=== PATIENT | male | born 1945 | race Caucasian/White ===

== ENCOUNTER 2016-06-30 07:37 | Day surgery (SDC) | payer OTHER ==
[2016-06-22 12:30] VITALS: BMI 23.0
[2016-06-30] MEDS ORDERED: LIDOCAINE 1% P/F 10 MG/ML VIAL ONE (07:52)
[2016-06-30] MEDS ORDERED: BSS (NA/CA/MG/K) BALANCED SALT SOLUTION OPHTH SOLN 15 ML BOTTLE ONE (07:52)
[2016-06-30] MEDS ORDERED: CARBACHOL 0.01% INTRA-OCULAR 1.5 ML VIAL ONE (07:52)
[2016-06-30] MEDS: CIPROFLOXACIN 0.3% EYE DROPS 5 ML BOTTLE ONE ×3 (08:05→08:15)
[2016-06-30] MEDS: TROPICAMIDE 1% OPHTH SOLN 15 ML BOTTLE ONE ×3 (08:05→08:15)
[2016-06-30] MEDS: CYCLOPENTOLATE 2% OPHTH SOLN 2 ML BOTTLE ONE ×3 (08:05→08:15)
[2016-06-30] MEDS: PHENYLEPHRINE 2.5% OPHTH SOLN 15 ML BOTTLE ONE ×3 (08:05→08:15)
[2016-06-30] MEDS ORDERED: MIDAZOLAM HCL 2 MG/2 ML SINGLE DOSE VIAL ONE (09:06)
[2016-06-30 10:09] VITALS: TEMP 98.3
[2016-06-30 10:47] VITALS: BP 132/81; PULSE 76
--- NOTE | 2016-06-30 19:58 | OP ---
DATE OF PROCEDURE: 06/30/2016 OPERATIVE PROCEDURE: Lens Phacoemulsification with Posterior Chamber Intraocular Lens Placement, Right Eye PREOPERATIVE DIAGNOSIS: Visually Significant Cataract of Right Eye POSTOPERATIVE DIAGNOSIS: Visually Significant Cataract of Right Eye SURGEON: Gian Walker M.D. ANESTHESIA: MAC PROCEDURE: The patient was brought to the operating room and placed under monitored anesthesia care by Anesthesia. A drop of Tetracaine was then placed over the right eye. The patient was then prepped and draped in the usual sterile manner. A speculum was then placed over the right eye. The eye was then well irrigated with copious amounts of BSS (balanced salt solution). The operating microscope was then moved into position. A paracentesis was performed using a 15 degree blade. At this point 0.5 mL of 1% preservative free-lidocaine was injected into the anterior chamber. Amvisc plus was then injected into the anterior chamber. A clear corneal incision was then formed using a 2.2 mm keratome. A capsulorrhexis was then performed in a continuous circular fashion beginning with a cystotome completed with an Utratas forceps. Hydrodissection was then performed using BSS on a cannula. The phaco probe was then introduced through the corneal wound and the cataract was removed using the phaco chop technique. Approximately 3 seconds of absolute phaco time was used. The remaining cortex was then removed using irrigation and aspiration with an I/A probe. The capsule was then filled with regular Amvisc and the capsule was noted to be intact. A previously selected foldable posterior chamber intraocular lens was then injected into the capsule through the corneal wound using a lens injector. It was then dialed into position using a Sinskey hook. The Amvisc was then removed using irrigation and aspiration. Miostat was then injected through the paracentesis to constrict the pupil. The paracentesis and corneal wound were then hydrated and noted to be water tight. A drop of Maxitrol was then placed over the eye. The speculum was removed and clear shield was taped over the eye. The patient tolerated the procedure well and there were no surgical complications. The patient was asked to follow up in my office the next day. GIAN WALKER M.D. 1 [id number]
== END 2016-06-30 10:25 | disposition home or self-care (01) ==
LOC: FASU 07:37
PROVIDERS: ATTEND Ophthalmology
PROC: 08RJ3JZ Replacement of Right Lens with Synthetic Substitute, Percutaneous Approach (ICD-10-PCS; principal; 2016-06-30 09:34)
DX: H26.8 Other specified cataract (principal)

== ENCOUNTER 2018-10-17 14:03 | Inpatient (IN) | payer OTHER ==
--- NOTE | 2018-10-17 14:11 | PDOC ---
History of Present Illness - General Chief Complaint: Abnormal Lab Results (Outside) Stated Complaint: ABNORMAL LAB RESULTS Time Seen by Provider: 10/17/18 14:06 History Source: Patient Exam Limitations: No Limitations - History of Present Illness Initial Comments: 10/17/18 14:07 73 yo male h/o hemorrhoids here c/o decreased urination and straining. pt states he has had over one week of difficulty urination. states he feels urge to go, straines and has very little urine output. also c/o lower abd discomfort fullness. no flank pain. no f/c does have dripping during night. no n/v. saw urgent care 6 days ago who did a urine dip was negative. then saw pcp yesterday who [facility]. was called today for increased BUN/ CR elevation unsure of how high. also c/o rect bleedig with stooling. Past History - Past Medical History Allergies/Adverse Reactions: Allergies Allergy/AdvReac Type Severity Reaction Status Date / Time poison florencia extract Allergy Severe Rash Verified 10/17/18 15:12 shellfish derived Allergy Severe Vomiting Verified 10/17/18 15:12 No Known Drug Allergies Allergy Verified 10/17/18 15:12 Home Medications: Ambulatory Orders Tamsulosin HCl [Flomax] 0.4 mg PO BID 10/17/18 Anemia: No Asthma: No Cancer: Yes (SKIN CA EYELID) Cardiac Disorders: No CVA: No COPD: No CHF: No Dementia: No Diabetes: No GI Disorders: No Disorders: No HTN: No Hypercholesterolemia: No Liver Disease: No Seizures: No Thyroid Disease: No - Surgical History Abdominal Surgery: No Appendectomy: No Cardiac Surgery: No Cholecystectomy: No Lung Surgery: No Neurologic Surgery: No Orthopedic Surgery: No - Suicide/Smoking/Psychosocial Hx Smoking History: Never smoked Have you smoked in the past 12 months: No Hx Alcohol Use: Yes (2 GLASSES WINE WEEK) Drug/Substance Use Hx: No Substance Use Type: Alcohol Hx Substance Use Treatment: No Review of Systems - Review of Systems Constitutional: No: Chills, Diaphoresis HEENTM: No: Eye Pain Respiratory: No: Cough, Orthopnea Cardiac (ROS): No: Chest Pain, Edema ABD/GI: No: Abdominal Distended, Nausea, Vomiting : Yes: Other (difficulty urinating) Musculoskeletal: No: Back Pain, Gout, Joint Pain Integumentary: No: Bruising, Change in Color Neurological: No: Headache All Other Systems: Reviewed and Negative *Physical Exam - Physical Exam Comments: 10/17/18 14:09 awake alert lungs clear bilaterally heart rrrl no mrg abd soft mild suprapubic ttp. no rebound no guarding. mild bladder fullness. no cva tenderness. skin warm and dry. alert oriented x 3. Heart Score/ECG Review #1 General ECG Interpretation: Sinus Rhythm, Normal Rate (80), Normal Intervals, No acute ischemic changes ED Treatment Course - LABORATORY CBC & Chemistry Diagram: 10/17/18 14:25 10/17/18 14:25 Medical Decision Making - Medical Decision Making 10/17/18 14:10 73 yo M with h/o hemorrhiods, here with difficulty urination, increased bun / creatinine. differential renal failure, dehydration , posobstructive renal failure vs. intrinsic. rectal bleed. uti, plan labs ua . post void bladder volume. 10/17/18 15:58 pt with renal failure cr. 8.36. likely post obstructive. bladder post void 800 ml. mild hydronephrosis. plan chin cathetar. will admit. ekg unrmarkable. other electrolyte normal. d/w dr Narvaez who states he will admit to [facility]. will consult nephrology and urolgy. 10/17/18 16:31 d/w dr Watson, nephrology. recommend hydration with 1/2 normal saline at 100/ hr in case of post obstructive diuresis. d/w urology Dr carolina, will see pt. 10/17/18 17:[address] requesting ct a/p r/o other intrabdominal process causing hydronephrosis, renal failure. *DC/Admit/Observation/Transfer Diagnosis at time of Disposition: Renal failure, Urinary retention - Discharge Dispostion Decision to Admit order: Yes - Referrals - Patient Instructions - Post Discharge Activity
[2018-10-17 14:47] LABS: BASO % 0.2 % (0-2.0); EOS % 0.5 % (0-4.5); HEMATOCRIT 45.9 % (35.4-49); HEMOGLOBIN 15.4 GM/dl (11.7-16.9); LYMPH % 11.5 % (8-40); MCH 30.9 pg (25.7-33.7); MCHC 33.5 g/dl (32.0-35.9); MEAN CELL VOLUME 92.3 fl (80-96); MONO % 12.6 % (3.8-10.2); NEUT % 75.2 % (42.8-82.8); PLATELET COUNT 174 K/MM3 (134-434); RBC 4.97 M/mm3 (4.00-5.60); RDW 13.2 % (11.9-15.9); WHITE BLOOD COUNT 6.3 K/mm3 (4.0-10.8)
[2018-10-17 14:55] LABS: ALBUMIN 3.6 g/dl (3.4-5.0); BILIRUBIN,TOTAL 0.6 mg/dl (0.2-1); CALCIUM 8.4 mg/dl (8.5-10); POTASSIUM 4.1 mmol/L (3.5-5.1); TOT PROT 6.6 g/dl (6.4-8.2)
[2018-10-17 15:16] LABS: CREATININE 8.6 mg/dl (0.55-1.3)
[2018-10-17 15:51] LABS: EPITHELIAL CELLS FEW /hpf
[2018-10-17] MEDS ORDERED: SODIUM CHLORIDE 0.9% 1000 ML INFUS.BAG IV ONE (16:31)
[2018-10-17] MEDS ORDERED: ACETAMINOPHEN 325 MG TABLET (FP) PO PRN (18:11)
[2018-10-17] MEDS ORDERED: SODIUM CHLORIDE 0.45% 1,000 ML IV SCH (18:15)
[2018-10-17 22:57] VITALS: BMI 46.7
[2018-10-17 23:19] LABS: CALCIUM 8.8 mg/dl (8.5-10); CREATININE 3.6 mg/dl (0.55-1.3); POTASSIUM 3.7 mmol/L (3.5-5.1)
[2018-10-18] MEDS: DOCUSATE SODIUM 100 MG CAPSULE (FP) PO SCH ×2 (00:46→21:55)
[2018-10-18] MEDS: TAMSULOSIN HCL 0.4 MG CAP PO SCH ×2 (00:46→20:20)
--- NOTE | 2018-10-18 09:28 | EKG ---
Test Reason : Blood Pressure : / mmHG Vent. Rate : 080 BPM Atrial Rate : 080 BPM P-R Int : 242 ms QRS Dur : 082 ms QT Int : 370 ms P-R-T Axes : 072 -08 020 degrees QTc Int : 426 ms SINUS RHYTHM WITH 1ST DEGREE A-V BLOCK SEPTAL INFARCT , AGE UNDETERMINED ABNORMAL ECG NO PREVIOUS ECGS AVAILABLE Confirmed by FELI KLEIN MD ([id number]) on 10/18/2018 9:28:27 AM Referred By: DR EMMANUEL Confirmed By:FELI KLEIN MD
[2018-10-18 11:23] LABS: CALCIUM 8.7 mg/dl (8.5-10); CREATININE 1.5 mg/dl (0.55-1.3); POTASSIUM 3.8 mmol/L (3.5-5.1)
--- NOTE | 2018-10-18 11:26 | CONSULT ---
Consult - text type - Consultation Consultation Note: Renal Consult for SWATHI This is a 73 year old gentleman with no significant past medical history who presented with abd pain and urinary retention and found to have SWATHI with bladder distension and bilateral hydronephrosis. Pt reports 4-5 period of difficulty urinating. No prior hx of prostate problems. Does have hemorrhoids. Was taking ibuprofen around the clock for pain. No chest pain, sob, N/V/D, fever , chills, leg swelling. Did have some dysuria with urination. PMHx: as above Allergies: NKDA Family Hx: Mother on dialysis (at age 99) Social Hx: No T/A/D ROS: as per HPI, all other pertinent ros negative Home Medications Medication Instructions Recorded Tamsulosin HCl [Flomax] 0.4 mg PO BID 10/17/18 Vital Signs Temperature 98.5 F 10/18/18 06:55 Pulse Rate 84 10/18/18 09:21 Respiratory Rate 18 10/18/18 09:21 Blood Pressure 143/73 10/18/18 09:21 O2 Sat by Pulse Oximetry (%) 100 10/18/18 09:21 Intake & Output 10/15/18 10/16/18 10/17/18 10/18/18 23:59 23:59 23:59 23:59 Intake Total 1000 Output Total 3800 1400 Balance -2800 -1400 Weight 156.6 kg NAD awake and alert neck supple, no JVD RRR, no M/R CTA, no rales or wheeze soft NT/ND No LE edema, clubbing or cyanosis Chin in place CBC, BMP 10/17/18 14:25 Current Medications Acetaminophen (Tylenol -) 650 mg PO Q6H PRN PRN Reason: PAIN Docusate Sodium (Colace -) 300 mg PO HS [facility] Last Admin: 10/18/18 00:46 Dose: 300 mg Finasteride (Proscar -) 5 mg PO DAILY [facility] Tamsulosin HCl (Flomax -) 0.4 mg PO DAILY@1999 [facility] Last Admin: 10/18/18 00:46 Dose: 0.4 mg 73 year old gentleman with no significant past medical history who presented with abd pain and urinary retention and found to have SWATHI with bladder distension and bilateral hydronephrosis. #SWATHI secondary ot bladder outlet obstruction + NSAID use #BPH with urinary retention #Metabolic acidosis #Hypertension in hospital #Metabolic acidosis Renal function improving with Chin and IVF todays am labs pending continue 1/2 NS at 100cc per hour for 24 hours continue flomax, will add proscar as well Urology consult for chin management Trend serum bicarb, expect to improve with improvement in renal function can monitor BP for now, should improve with renal function Thank you Doug Mcghee DO
[2018-10-18] MEDS: FINASTERIDE 5 MG TABLET (FP) PO SCH (11:50)
--- NOTE | 2018-10-18 17:39 | HP ---
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) Cardiovascular: No: AFIB, Aneurysm, Aortic Insufficiency, Aortic Stenosis, CAD, CHF, Deep Vein Thrombosis, HTN, Hyperlipdemia, IA, Mitral Insufficiency, Mitral Stenosis, Murmur, Pulmonary Hypertension, Other Pulmonary: No: Asthma, Bronchitis, Cancer, COPD, O2 Dependent, Pneumonia, Previously Intubated, Pulmonary Embolus, Pulmonary Fibrosis, Sleep Apnea, Other Gastrointestinal: No: Ascites, Cancer, Constipation, Crohn's Disease, Diverticulitis, Diverticulosis, Esophageal Varices, Gastritis, GERD, GI Bleed, Hemorrhoids, Hiatal Hernia, Inflamatory Bowel Disease, Irritable Bowel Disease, Pancreatitis, Peptic Ulcer Disease, Ulcerative Colitis, Other Hepatobiliary: No: Cirrhosis, Cholelithiasis, Cholecystitis, Choledocholithiasis , Hepatitis A, Hepatitis B, Hepatitis C, Other Renal/: No: Renal Failure, Renal Inusuff, BPH, Cancer, Hematuria, Hemodialysis , Neurogenic Bladder, Renal Calculi, UTI, Other Heme/Onc: No: Anemia, B12 Deficiency, Bleeding Disorder, Cancer, Current Chemotherapy, Current Radiation Therapy, Hemochromatosis, Hypercoaguable State, Myeloproliferative Synd, Sickle Cell Disease, Sickle Cell Trait, Thrombocytopenia, Other Infectious Disease: No: AIDS, C-Diff, Herpes Zoster, HIV, MRSA, STD's, Tuberculosis, VREF, Other Psych: No: Addictions, Anxiety, Bipolar, Depression, Panic, Psychosis, Schizophrenia, Other Musculoskeletal: No: Bursitis, Chronic low back pain, Hemiparesis, Hemiplegia, Osteoarthritis, Paraplegia, Other Rheumatology: No: Fibromyalgia, Gout, Lupus, Rheumatoid Arthritis, Sarcoidosis, Vasculitis, Other ENT: Yes: Allergic Rhinitis Endocrine: No: [place]'s Disease, [place]'s Disease, Diabetes Insipidus, Diabetes Mellitus, Hyperparathyroidism, Hyperthyroidism, Hypothyroidism, Osteopenia, SIADH, Other Dermatology: No: Basal Cell, Cellulitis, Eczema, Melanoma, Psoriasis, Squamous Cell, Other - Past Surgical History Past Surgical History: No: None, AAA Repair, AICD, Amputation, Appendectomy, Arthrosocopy, AV Fistula/Graft, Bariatric Surgery, Breast Biopsy, Bypass, CABG, Carotid Endarterectomy, Cataract Removal, Cholecystectomy, Colectomy, Colonoscopy, Colostomy, Craniotomy, , Cystectomy, Hernia Repair, Hysterectomy, Ileal Conduit, Ileosotomy, Joint Replacement, Kidney Transplant, Laminectomy, Liver Transplant, Mastectomy, Nephrectomy, Oopherectomy, Orchiectomy, Permanent Pacemaker, Prostatectomy, Splenectomy, Stent, Thoracotomy , TURP, Tonsillectomy, Tubal Ligation, Upper Endoscopy, Valve Replacement, Vasectomy, Vein Stripping/Ligation - Smoking History Smoking history: Former smoker Have you smoked in the past 12 months: No If you are a former smoker, when did you quit?: 1989 - Alcohol/Substance Use Hx Alcohol Use: Yes (2 GLASSES WINE WEEK) History of Substance Use: denies: None, Cocaine, Heroin, Marijuana, Prescription , Tranquilizers - Social History Usual Living Arrangement: Yes: Alone. No: With Spouse, With Parent, With Significant Other, With Child, Assisted Living, Half-Way, Other ADL: Independent History of Recent Travel: No Home Medications - Allergies Allergies/Adverse Reactions: Allergies Allergy/AdvReac Type Severity Reaction Status Date / Time poison florencia extract Allergy Severe Rash Verified 10/17/18 15:12 shellfish derived Allergy Severe Vomiting Verified 10/17/18 15:12 No Known Drug Allergies Allergy Intermediate Verified 10/18/18 17:52 - Home Medications Home Medications: Ambulatory Orders Tamsulosin HCl [Flomax] 0.4 mg PO BID 10/17/18 Family Disease History - Family Disease History Family Disease History: Diabetes: Mother (crf on dialysis) Review of Systems - Review of Systems Constitutional: denies: No Symptoms, Chills, Diaphoresis, Fever, Lethargy, Loss of Appetite, Malaise, Night Sweats, Unintentional Wgt. Loss, Weakness, Other Eyes: denies: No Symptoms, Blind Spots, Blurred Vision, Double Vision, Eye Pain , Floaters, Photophobia, Recent Change in Vision, Other HENT: denies: No Symptoms, Difficult Swallowing, Ear Discharge, Ear Pain, Epistaxis, Gingival Bleeding, Hearing Loss, Mouth Swelling, Nasal Congestion, Ocular Prosthesis, Throat Pain, Toothache, Ringing in Ears, Other Neck: denies: No Symptoms, Decreased ROM, Lumps, Pain on Movement, Stiffness, Swollen Glands, Tenderness, Other Cardiovascular: denies: No Symptoms, Chest Pain, Edema, Palpitations, Shortness of Breath, Other Respiratory: denies: No Symptoms, Cough, Exercise Intolerance, Hemoptysis, Orthopnea, PND, Snoring, SOB, SOB on Exertion, Wheezing, Other Gastrointestinal: denies: No Symptoms, Abdominal Pain, Bloating, Constipation, Diarrhea, Dysphagia, Indigestion, Melena, Nausea, Rectal Bleeding, Vomiting, Vomiting Blood, Other Genitourinary: reports: Burning, Dysuria, Frequency, Urgency. denies: No Symptoms, Discharge, Flank Pain, Hematuria, Incontinence, Lesions, Menses, Pain , Testicular Mass, Testicular Pain, Testicular Swelling, Vaginal Bleeding, Other Breasts: denies: No Symptoms Reported, See HPI, Breast Implants, Discharge from Nipple, Lumps, Pain, Skin Changes, Other Musculoskeletal: denies: No Symptoms, Back Pain, Crepitus, Decreased ROM, Extremity Pain, Joint Pain, Joint Swelling, Muscle Pain, Muscle Cramps, Muscle Weakness, Other Integumentary: denies: No Symptoms, Blister, Bruising, Change in Color, Eczema, Erythema, Incision, Lesions, Lump, Pallor, Pruritis, Rash, Wound, Other Neurological: denies: No Symptoms, Change in LOC, Change in Speech, Confusion, Dizziness, Headache, Incoordination, Numbness, Parasthesia, Pre-Existing Deficit , Seizure, Syncope, Tremors, Unsteady Gait, Weakness, Other Endocrine: denies: No Symptoms, Excessive Sweating, Flushing, Increased Hunger, Increased Thirst, Intolerance to Cold, Intolerance to Heat, Unexplained Weight Gain, Unexplained Weight Loss, Other Psychiatric: denies: No Symptoms, Altered Sleep Pattern, Anxiety, Depression, Hallucinations, Panic, Paranoia, Suicidal, Other Physical Examination Vital Signs: Vital Signs Temperature 98.3 F 10/18/18 14:41 Pulse Rate 68 10/18/18 14:41 Respiratory Rate 18 10/18/18 14:41 Blood Pressure 131/73 10/18/18 14:41 O2 Sat by Pulse Oximetry (%) 96 10/18/18 14:41 Constitutional: Yes: Well Nourished, No Distress, Calm. No: Anxious, Ashen, Cachectic, Diaphoresis, Mild Distress, Moderate Distress, Severe Distress, Obese , Pallor, Poor Hygeine, Thin, Other Eyes: Yes: WNL, Conjunctiva Clear, EOM Intact, PERRL. No: Cataracts, Diplopia, Occular Prosthesis, Ptosis, Sclera Icterus, Tearing, Other HENT: Yes: WNL, Atraumatic, Normocephalic. No: Drooling, Epistaxis, Hoarseness , Nasal Congestion, Pharyngeal Erythema, Rhinnorhea, Thrush, Tonsillar Exudate, Other Neck: Yes: WNL, Supple. No: Trachea Midline, Decreased ROM, Lymphadenopathy, Rigid, Tenderness, Thyromegaly, Other Cardiovascular: Yes: WNL, Regular Rate and Rhythm. No: Bradycardia, Tachycardia , Pulse Irregular, Bruit, JVD, Gallop, Murmur, Rub, S1, S2, S3, S4, Varicosities , Other Respiratory: Yes: WNL, Regular. No: CTA Bilaterally, Accessory Muscle Use, Bradypnea, Colin-Singh, Cough, Diminished, Dullness, Hyperresonant, Intubated , [place], Mechanically Ventilated, On BiPap, On Nasal O2, On Venti-Mask, Orthopnea, Poor Air Entry, Rales, Rhonchi, SOB, SOB on Exertion, Stridor, Tachypnea, Wheezes, Other Gastrointestinal: Yes: WNL, Normal Bowel Sounds, Soft. No: Abdomen, Obese, Ascites, Distention, Hematemesis, Hemorrhoids, Hepatomegaly, Hernia, Hyperactive Bowel Sounds, Hypoactive Bowel Sounds, Melena, Palpable Mass, Pulsatile Mass, Rectal Bleeding, Splenomegaly, Tenderness, Tenderness, Epigastrium, Tenderness, Rebound, Vomiting, Other ...Rectal Exam: Yes: Guaiac Positive, Hemorrhoids/External, Other (large prostate). No: WNL, Deferred, Erythema, Guaiac Negative, Guaiac Trace, Hemorrhoids/Internal, Induration, Inflammation, Mass, Sphincter Tone Normal, Sphincter Tone Poor Renal/: Yes: WNL, Anuria Musculoskeletal: Yes: WNL Extremities: Yes: WNL Edema: No Integumentary: Yes: WNL Neurological: Yes: WNL, Alert, Oriented ...Motor Strength: WNL Psychiatric: Yes: WNL Labs: CBC, BMP 10/17/18 14:25 10/18/18 07:00 Imaging - Results Cat Scan: Pending Problem List - Problems (1) Urinary retention Assessment/Plan: large /prostate with obstruction;external hemorrhoids;hemoult pos.stoolplan ct of abdomen;urology consult with [urology];iv fluids;serial chem-7; consult with nephrology;awaiting psa;this patient is optimized for spinal or epidural anesthesia for prostatectomy Code(s): R33.9 - RETENTION OF URINE, UNSPECIFIED
--- NOTE | 2018-10-18 18:04 | CON.GU ---
Consult Consult Specialty:: Referred by:: Solange Reason for Consultation:: urinary retention - History of Present Illness Chief Complaint: difficulty voiding History of Present Illness: 73 yo male h/o hemorrhoids here c/o decreased urination and straining. pt states he has had over one week of difficulty urination. states he feels urge to go, strains and has very little urine output. also c/o lower abd discomfort fullness. no flank pain. no f/c does have dripping during night. no n/v. saw urgent care 6 days ago who did a urine dip was negative. then saw pcp yesterday who [facility]. was called today for increased BUN/ CR elevation unsure of how high. also c/o rectal bleeding with BMs. 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) Cardio/Vascular: No: AFIB, Aneurysm, Aortic Insufficiency, Aortic Stenosis, CAD , CHF, Deep Vein Thrombosis, HTN, Hyperlipdemia, [place], Mitral Insufficiency, Mitral Stenosis, Murmur, Pulmonary Hypertension, Other Pulmonary: No: Asthma, Bronchitis, Cancer, COPD, O2 Dependent, Pneumonia, Previously Intubated, Pulmonary Embolus, Pulmonary Fibrosis, Sleep Apnea, Other Gastrointestinal: No: Ascites, Cancer, Constipation, Crohn's Disease, Diverticulitis, Diverticulosis, Esophageal Varices, Gastritis, GERD, GI Bleed, Hemorrhoids, Hiatal Hernia, Inflamatory Bowel Disease, Irritable Bowel Disease, Pancreatitis, Peptic Ulcer Disease, Ulcerative Colitis, Other Hepatobiliary: No: Cirrhosis, Cholelithiasis, Cholecystitis, Choledocholithiasis , Hepatitis A, Hepatitis B, Hepatitis C, Other Renal/: Yes: BPH. No: Renal Failure, Renal Inusuff, Cancer, Hematuria, Hemodialysis, Neurogenic Bladder, Renal Calculi, UTI, Other Infectious Disease: No: AIDS, C-Diff, Herpes Zoster, HIV, MRSA, STD's, Tuberculosis, VREF, Other Psych: No: Addictions, Anxiety, Bipolar, Depression, Panic, Psychosis, Schizophrenia, Other Musculoskeletal: No: Bursitis, Chronic low back pain, Hemiparesis, Hemiplegia, Osteoarthritis, Paraplegia, Other Rheumatology: No: Fibromyalgia, Gout, Lupus, Rheumatoid Arthritis, Sarcoidosis, Vasculitis, Other ENT: Yes: Allergic Rhinitis Endocrine: No: [place]'s Disease, [place]'s Disease, Diabetes Insipidus, Diabetes Mellitus, Hyperparathyroidism, Hyperthyroidism, Hypothyroidism, Osteopenia, SIADH, Other Dermatology: No: Basal Cell, Cellulitis, Eczema, Melanoma, Psoriasis, Squamous Cell, Other - Past Surgical History Past Surgical History: No: None, AAA Repair, AICD, Amputation, Appendectomy, Arthrosocopy, AV Fistula/Graft, Bariatric Surgery, Breast Biopsy, Bypass, CABG, Carotid Endarterectomy, Cataract Removal, Cholecystectomy, Colectomy, Colonoscopy, Colostomy, Craniotomy, , Cystectomy, Hernia Repair, Hysterectomy, Ileal Conduit, Ileosotomy, Joint Replacement, Kidney Transplant, Laminectomy, Liver Transplant, Mastectomy, Nephrectomy, Oopherectomy, Orchiectomy, Permanent Pacemaker, Prostatectomy, Splenectomy, Stent, Thoracotomy , TURP, Tonsillectomy, Tubal Ligation, Upper Endoscopy, Valve Replacement, Vasectomy, Vein Stripping/Ligation - Alcohol/Substance Use Hx Alcohol Use: Yes (2 GLASSES WINE WEEK) History of Substance Use: denies: None, Cocaine, Heroin, Marijuana, Prescription , Tranquilizers - Smoking History Smoking history: Former smoker Have you smoked in the past 12 months: No If you are a former smoker, when did you quit?: 1989 - Social History ADL: Independent History of Recent Travel: No Home Medications - Allergies Allergies/Adverse Reactions: Allergies Allergy/AdvReac Type Severity Reaction Status Date / Time poison florencia extract Allergy Severe Rash Verified 10/17/18 15:12 shellfish derived Allergy Severe Vomiting Verified 10/17/18 15:12 No Known Drug Allergies Allergy Intermediate Verified 10/18/18 17:52 - Home Medications Home Medications: Ambulatory Orders Tamsulosin HCl [Flomax] 0.4 mg PO BID 10/17/18 Physical Exam- Vital Signs: Vital Signs Temperature 98.3 F 10/18/18 14:41 Pulse Rate 68 10/18/18 14:41 Respiratory Rate 18 10/18/18 14:41 Blood Pressure 131/73 10/18/18 14:41 O2 Sat by Pulse Oximetry (%) 96 10/18/18 14:41 Gastrointestinal: Yes: WNL Renal/: Yes: WNL, Briceño Present. No: Bladder Distention Testicles: Yes: WNL, Descended Scrotum: Yes: WNL Penis: Yes: WNL Prostate Exam: Yes: Swollen (2+) Labs: CBC, BMP 10/17/18 14:25 10/18/18 07:00 Imaging - Results Cat Scan: Report Reviewed, Image Reviewed Ultrasound: Report Reviewed
--- NOTE | 2018-10-18 18:27 | CON.GU ---
Consult Consult Specialty:: Referred by:: Solange Reason for Consultation:: urinary retention - History of Present Illness Chief Complaint: difficulty voiding History of Present Illness: 73 year old gentleman with no significant past medical history who presented with abd pain and urinary retention and found to have BPH, SWATHI with bladder distension and bilateral hydronephrosis. Pt reports 4-5 period of difficulty urinating. No prior hx of prostate problems. Does have hemorrhoids. Was taking ibuprofen around the clock for pain. No chest pain, sob, N/V/D, fever , chills, leg swelling. Did have some dysuria with urination. PMHx: as above Allergies: NKDA Family Hx: Mother on dialysis (at age 99) Social Hx: No T/A/D ROS: as per HPI, all other pertinent ros negative cons req. 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 (several bouts of lyme disease) Cardio/Vascular: No: AFIB, Aneurysm, Aortic Insufficiency, Aortic Stenosis, CAD , CHF, Deep Vein Thrombosis, HTN, Hyperlipdemia, [place], Mitral Insufficiency, Mitral Stenosis, Murmur, Pulmonary Hypertension, Other Pulmonary: No: Asthma, Bronchitis, Cancer, COPD, O2 Dependent, Pneumonia, Previously Intubated, Pulmonary Embolus, Pulmonary Fibrosis, Sleep Apnea, Other Gastrointestinal: No: Ascites, Cancer, Constipation, Crohn's Disease, Diverticulitis, Diverticulosis, Esophageal Varices, Gastritis, GERD, GI Bleed, Hemorrhoids, Hiatal Hernia, Inflamatory Bowel Disease, Irritable Bowel Disease, Pancreatitis, Peptic Ulcer Disease, Ulcerative Colitis, Other Hepatobiliary: No: Cirrhosis, Cholelithiasis, Cholecystitis, Choledocholithiasis , Hepatitis A, Hepatitis B, Hepatitis C, Other Renal/: Yes: BPH. No: Renal Failure, Renal Inusuff, Cancer, Hematuria, Hemodialysis, Neurogenic Bladder, Renal Calculi, UTI, Other Infectious Disease: No: AIDS, C-Diff, Herpes Zoster, HIV, MRSA, STD's, Tuberculosis, VREF, Other Psych: No: Addictions, Anxiety, Bipolar, Depression, Panic, Psychosis, Schizophrenia, Other Musculoskeletal: No: Bursitis, Chronic low back pain, Hemiparesis, Hemiplegia, Osteoarthritis, Paraplegia, Other Rheumatology: No: Fibromyalgia, Gout, Lupus, Rheumatoid Arthritis, Sarcoidosis, Vasculitis, Other ENT: Yes: Allergic Rhinitis Endocrine: No: Anson's Disease, Vianey's Disease, Diabetes Insipidus, Diabetes Mellitus, Hyperparathyroidism, Hyperthyroidism, Hypothyroidism, Osteopenia, SIADH, Other Dermatology: No: Basal Cell, Cellulitis, Eczema, Melanoma, Psoriasis, Squamous Cell, Other - Past Surgical History Past Surgical History: No: None, AAA Repair, AICD, Amputation, Appendectomy, Arthrosocopy, AV Fistula/Graft, Bariatric Surgery, Breast Biopsy, Bypass, CABG, Carotid Endarterectomy, Cataract Removal, Cholecystectomy, Colectomy, Colonoscopy, Colostomy, Craniotomy, , Cystectomy, Hernia Repair, Hysterectomy, Ileal Conduit, Ileosotomy, Joint Replacement, Kidney Transplant, Laminectomy, Liver Transplant, Mastectomy, Nephrectomy, Oopherectomy, Orchiectomy, Permanent Pacemaker, Prostatectomy, Splenectomy, Stent, Thoracotomy , TURP, Tonsillectomy, Tubal Ligation, Upper Endoscopy, Valve Replacement, Vasectomy, Vein Stripping/Ligation - Alcohol/Substance Use Hx Alcohol Use: Yes (2 GLASSES WINE WEEK) History of Substance Use: denies: None, Cocaine, Heroin, Marijuana, Prescription , Tranquilizers - Smoking History Smoking history: Former smoker Have you smoked in the past 12 months: No If you are a former smoker, when did you quit?: 1989 - Social History ADL: Independent History of Recent Travel: No Home Medications - Allergies Allergies/Adverse Reactions: Allergies Allergy/AdvReac Type Severity Reaction Status Date / Time poison florencia extract Allergy Severe Rash Verified 10/17/18 15:12 shellfish derived Allergy Severe Vomiting Verified 10/17/18 15:12 No Known Drug Allergies Allergy Intermediate Verified 10/18/18 17:52 - Home Medications Home Medications: Ambulatory Orders Tamsulosin HCl [Flomax] 0.4 mg PO BID 10/17/18 Family Disease History - Family Disease History Family Disease History: Diabetes: Mother (crf on dialysis) Physical Exam- Vital Signs: Vital Signs Temperature 98.3 F 10/18/18 14:41 Pulse Rate 68 10/18/18 14:41 Respiratory Rate 18 10/18/18 14:41 Blood Pressure 131/73 10/18/18 14:41 O2 Sat by Pulse Oximetry (%) 96 10/18/18 14:41 Renal/: Yes: Chin Present. No: Bladder Distention Pelvis: Yes: WNL. No: Bladder Palpable, Bladder Distended Testicles: Yes: WNL Scrotum: Yes: WNL Penis: Yes: WNL Prostate Exam: Yes: Swollen Labs: CBC, BMP 10/17/18 14:25 10/18/18 07:00 Imaging - Results Cat Scan: Report Reviewed, Image Reviewed Ultrasound: Report Reviewed Problem List - Problems (1) BPH loc w urin obs/LUTS Assessment/Plan: cont chin, rx finasteride, TURP 10/[address] [facility] Code(s): N40.1 - BENIGN PROSTATIC HYPERPLASIA WITH LOWER URINARY TRACT SYMP (2) Renal failure Code(s): N19 - UNSPECIFIED KIDNEY FAILURE (3) Urinary retention Code(s): R33.9 - RETENTION OF URINE, UNSPECIFIED (4) Hydronephrosis Code(s): N13.30 - UNSPECIFIED HYDRONEPHROSIS (5) Elevated PSA Code(s): R97.20 - ELEVATED PROSTATE SPECIFIC ANTIGEN [PSA]
[2018-10-19 08:17] LABS: INR 1.2 (0.82-1.09); PROTHROMBIN TIME (PATIENT) 13.4 SEC (10.2-13.0)
[2018-10-19] MEDS: FINASTERIDE 5 MG TABLET (FP) PO SCH (09:53)
[2018-10-19 10:17] LABS: CALCIUM 8.6 mg/dl (8.5-10); CREATININE 0.7 mg/dl (0.55-1.3); POTASSIUM 3.8 mmol/L (3.5-5.1)
--- NOTE | 2018-10-19 16:28 | PN ---
Progress Note (short form) - Note Progress Note: Renal follow up for SWATHI Pt seen and examined at the bedside awake and alert no acute complaints voiding via catheter no cp, sob, abd pain, N/V/D off IVF Vital Signs Temperature 98.2 F 10/19/18 14:00 Pulse Rate 65 10/19/18 14:00 Respiratory Rate 18 10/19/18 14:00 Blood Pressure 162/77 10/19/18 14:00 O2 Sat by Pulse Oximetry (%) 98 10/19/18 14:00 Intake & Output 10/16/18 10/17/18 10/18/18 10/19/18 23:59 23:59 23:59 23:59 Intake Total 1000 2550 1500 Output Total 3800 2500 1300 Balance -2800 50 200 Weight 156.6 kg 71.033 kg NAD RRR, no M/R CTA, no rales or wheeze soft NT/ND No LE edema, clubbing or cyanosis Briceño in place CBC, BMP 10/17/18 14:25 10/19/18 07:10 73 year old gentleman with no significant past medical history who presented with abd pain and urinary retention and found to have SWATHI with bladder distension and bilateral hydronephrosis. #SWATHI secondary ot bladder outlet obstruction + NSAID use #BPH with urinary retention #Metabolic acidosis #Hypertension in hospital #Metabolic acidosis Renal function now improved to baseline can be off IVF encouraged oral hydration for TURP tomorrow continue flomax/proscar - length of treatment to be determined by urology will sign off case at this time please call with any questions or concerns. Thank you Doug Mcghee DO
[2018-10-19] MEDS: DOCUSATE SODIUM 100 MG CAPSULE (FP) PO SCH (21:35)
[2018-10-19] MEDS: TAMSULOSIN HCL 0.4 MG CAP PO SCH (21:35)
--- NOTE | 2018-10-20 12:42 | OP ---
Operative Note - Note: Operative Date: 10/20/18 Pre-Operative Diagnosis: BPH, urinary retention Operation: bipolar TURP Findings: BPH Post-Operative Diagnosis: Same as Pre-op Surgeon: Everett Jeffers Anesthesiologist/CHECKOUT OPERATOR: Serge Cooper Anesthesia: Spinal Specimens Removed: prostate tissue Estimated Blood Loss (mls): 0 Drains & Tubes with Location: [address] 30 ml chin Operative Report Dictated: Yes
[2018-10-20] MEDS ORDERED: PROPOFOL 20 ML ONE (13:39)
[2018-10-20] MEDS ORDERED: MIDAZOLAM HCL 2 MG/2 ML SINGLE DOSE VIAL ONE (13:39)
[2018-10-20] MEDS ORDERED: SODIUM CHLORIDE 0.9% P/F 10 ML VIAL IJ ONE (13:40)
[2018-10-20] MEDS ORDERED: ceFAZolin SODIUM 1 GM VIAL ONE (13:40)
[2018-10-20] MEDS ORDERED: ceFAZolin SODIUM 1 GM VIAL IVPB ONE (14:00)
[2018-10-20] MEDS ORDERED: ONDANSETRON 4 MG/2 ML VIAL IVPUSH PRN (15:15)
[2018-10-20] MEDS ORDERED: ACETAMINOPHEN 325 MG TABLET (FP) PO PRN (15:59)
[2018-10-20] MEDS ORDERED: CEFAZOLIN 1 GM in DEXTROSE 5%-WATER - 50 ML IVPB SCH (18:00)
[2018-10-20] MEDS: LACTATED RINGERS SOLUTION 1,000 ML IV SCH (18:51)
[2018-10-20] MEDS: FINASTERIDE 5 MG TABLET (FP) PO SCH (18:51)
[2018-10-20] MEDS: TAMSULOSIN HCL 0.4 MG CAP PO SCH (20:12)
[2018-10-20] MEDS: CEFAZOLIN 1 GM/D5W 1 GM/50 ML BAG IVPB SCH (21:38)
[2018-10-20] MEDS: DOCUSATE SODIUM 100 MG CAPSULE (FP) PO SCH (21:38)
[2018-10-21] MEDS: CEFAZOLIN 1 GM/D5W 1 GM/50 ML BAG IVPB SCH ×3 (01:31→18:00)
--- NOTE | 2018-10-21 07:45 | OP ---
DATE OF OPERATION: 10/20/2018 PREOPERATIVE DIAGNOSES: Benign prostatic hypertrophy, urinary retention. POSTOPERATIVE DIAGNOSES: Benign prostatic hypertrophy, urinary retention. PROCEDURE: Bipolar transurethral resection of the prostate. SURGEON: Everett Jeffers MD CANDY SEPARATOR ENROBING: None. ANESTHESIA: Spinal. ANESTHESIOLOGIST: Qasim Puentes CRNA SPECIMENS: Prostate tissue. CULTURES: None. DRAINS: A 22-Kenyan, 3-way Briceño catheter. ESTIMATED BLOOD LOSS: Negligible. COMPLICATIONS: None. DESCRIPTION OF PROCEDURE: Patient was brought in the operating room, placed on the operating table in the supine position. After administration of spinal anesthesia, intravenous antibiotics were administered. Sequential compression devices were placed. Patient was placed in dorsal lithotomy position and his indwelling Briceño catheter was removed and the genitals and perineum were prepped and draped in usual sterile manner. A 26-Kenyan resectoscope sheath with visualizing obturator was inserted into the bladder under direct vision. The anterior urethra was normal. The prostatic urethra measured 5 cm in length, demonstrated severe bilobar occlusion. The bladder was entered and thoroughly inspected. There were no foreign bodies, tumors, stones, or inflammation. Both ureteral orifices were in their usual location with clear efflux bilaterally. There was heavy trabeculations and shallow bladder diverticulum, left posterior wall. Now, the working element of the [employer] bipolar resectoscope was inserted. TURP was performed in the standard fashion by first creating a groove in the left lateral lobe of the prostate at the 2 o'clock position from the area of the bladder neck to the verumontanum, down to the level of the capsular fibers. Left lateral lobe of the prostate was then sequentially resected from the 2 to the 6 o'clock position from the area of the bladder neck to the verumontanum, down to the level of the capsular fibers. In a similar manner, the right lateral lobe of the prostate was resected. The roof and the floor of the prostate were resected. All resected prostatic tissue was removed from the bladder with the Rachelle evacuator. All obstructive prostatic tissue from the bladder neck to the verumontanum was resected down to capsular fibers. Hemostasis was assured with electrocautery. Both ureteral orifices were intact at the end of the procedure. Instruments were removed, and a 22-Kenyan, 3-way Briceño catheter was inserted in the bladder; 30 mL placed in the balloon, placed on continuous bladder irrigation. Return minimally blood tinged. He tolerated the procedure well, transferred to the recovery room in stable condition. Dayanara [id number]
[2018-10-21 08:35] LABS: HEMATOCRIT 38.9 % (35.4-49); HEMOGLOBIN 13.2 GM/dl (11.7-16.9); MCH 31.2 pg (25.7-33.7); MEAN CELL VOLUME 91.9 fl (80-96); MEAN PLT VOLUME 8.1 fl (7.5-11.1); PLATELET COUNT 208 K/MM3 (134-434); RBC 4.23 M/mm3 (4.00-5.60); RDW 12.6 % (11.9-15.9)
--- NOTE | 2018-10-21 09:25 | PN ---
CANDELARIA Wilson Note Chief Complaint: pt w/o c/o, POD # 1 s/p TURP - Objective Vital Signs: Vital Signs Temperature 98.4 F 10/21/18 06:00 Pulse Rate 65 10/21/18 06:00 Respiratory Rate 10/21/18 06:00 Blood Pressure 143/75 10/21/18 06:00 O2 Sat by Pulse Oximetry (%) 97 10/20/18 22:00 Gastrointestinal: Yes: WNL Genitourinary: Yes: Briceño Present (clear cbi) Labs/Additional Data: CBC, BMP 10/21/18 06:50 INR, PTT INR 1.20 (0.82-1.09) 10/19/18 07:10 Problem List - Problems (1) BPH loc w urin obs/LUTS Code(s): N40.1 - BENIGN PROSTATIC HYPERPLASIA WITH LOWER URINARY TRACT SYMP (2) Renal failure Code(s): N19 - UNSPECIFIED KIDNEY FAILURE (3) Urinary retention Code(s): R33.9 - RETENTION OF URINE, UNSPECIFIED (4) Hydronephrosis Code(s): N13.30 - UNSPECIFIED HYDRONEPHROSIS (5) Elevated PSA Code(s): R97.20 - ELEVATED PROSTATE SPECIFIC ANTIGEN [PSA] Assessment/Plan Imp: BPH s/p TURP, urinary retention, resolved SWATHI Plan: DC CBI, OOB, check labs
[2018-10-21] MEDS: FINASTERIDE 5 MG TABLET (FP) PO SCH (09:41)
[2018-10-21 11:25] LABS: CALCIUM 8.3 mg/dL (8.5-10.1); CREATININE 0.7 mg/dL (0.55-1.3); POTASSIUM 3.5 mmol/L (3.5-5.1)
[2018-10-21] MEDS: LACTATED RINGERS SOLUTION 1,000 ML IV SCH (15:15)
[2018-10-21] MEDS: DOCUSATE SODIUM 100 MG CAPSULE (FP) PO SCH (21:26)
[2018-10-21] MEDS: TAMSULOSIN HCL 0.4 MG CAP PO SCH (21:27)
--- NOTE | 2018-10-22 08:16 | PN ---
Progress Note (short form) - Note Progress Note: F/U POD # 2 s/p TURP Pt w/o c/o VSS afeb Chin w minimally blood tinged urine labs wnl Imp: BPH s/p TURP, elevated PSA, resolved SWATHI due to Rec: will remove chin for trial of void. OK for disch from standpoint after voids. RX bactrim ds 1 bid x 1 week. F/U in my office to check pathology in 2 weeks. Problem List - Problems (1) BPH loc w urin obs/LUTS Code(s): N40.1 - BENIGN PROSTATIC HYPERPLASIA WITH LOWER URINARY TRACT SYMP (2) Renal failure Code(s): N19 - UNSPECIFIED KIDNEY FAILURE (3) Urinary retention Code(s): R33.9 - RETENTION OF URINE, UNSPECIFIED (4) Hydronephrosis Code(s): N13.30 - UNSPECIFIED HYDRONEPHROSIS (5) Elevated PSA Code(s): R97.20 - ELEVATED PROSTATE SPECIFIC ANTIGEN [PSA]
[2018-10-22] MEDS: FINASTERIDE 5 MG TABLET (FP) PO SCH (09:27)
[2018-10-22 10:18] VITALS: BP 145/73; PULSE 66; TEMP 98.5
--- NOTE | 2018-10-24 11:29 | PATH ---
Surgical Pathology Report Patient Name: DOMENICA ROBLERO Med. Rec. #: [id number] /Age/Gender: 1945 (Age: 73) / M Account: [id number] Location: [facility] Taken: 10/20/2018 Received: 10/23/2018 Reported: 10/24/2018 Physicians: Everett Jeffers M.D. Specimen(s) Received PROSTATE CHIPS Clinical History BPH Final Diagnosis PROSTATE, TUR: BENIGN PROSTATIC HYPERPLASIA WITH AREAS OF ACUTE INFLAMMATION AND ATROPHY. Electronically Signed Mehul Enamorado M.D. Gross Description Received in formalin labeled "prostate tissue" is a 17 g, 10.5 x 9.5 x 1.0 cm aggregate of galdamez, irregular, firm to rubbery portions of tissue, consistent with prostate chips. A personnel representative portion is submitted in 10 cassettes. DL/10/23/2018 saudi/10/23/2018
== END 2018-10-22 15:20 | disposition home or self-care (01) | DRG 713 ==
LOC: FER 14:03 → FM/S 19:14 → JSAMEDAYSX 10-20 10:01 → FM/S 10-20 18:04
PROVIDERS: ADMIT Legal Medicine; ATTEND Legal Medicine
PROC: 0VT08ZZ Resection of Prostate, Via Natural or Artificial Opening Endoscopic (ICD-10-PCS; principal; 2018-10-20 12:00)
DX: N40.1 Benign prostatic hyperplasia with lower urinary tract symptoms (principal); N17.9 Acute kidney failure, unspecified; E87.2 Acidosis; N13.30 Unspecified hydronephrosis; R33.8 Other retention of urine
CPT/HCPCS: 36415; 71046-TC-FY; 74176-TC; 76775-TC; 76856-TC; 80048; 80053; 81003; 81015; 84153; 85025; 85027; 85610; 87086; 88305-TC; 93005; 94760; 99284-25; J7030